=== PATIENT | male | born 1970 | race African-American/Black ===

== ENCOUNTER 2018-11-19 07:29 | Emergency (ER) | payer SELFPAY | END 2018-11-19 08:14 | disposition home or self-care (01) | LOC: ERS 07:29 | DX: R21 Rash and other nonspecific skin eruption (principal); F17.210 Nicotine dependence, cigarettes, uncomplicated | CPT/HCPCS: 99281 ==

== ENCOUNTER 2020-04-19 12:49 | Emergency (ER) | payer SELFPAY ==
[2020-04-19] MEDS ORDERED: Acetaminophen 500 MG TAB ONE (14:04)
== END 2020-04-19 14:08 | disposition home or self-care (01) ==
LOC: ERS 12:49
DX: K04.7 Periapical abscess without sinus (principal); L03.211 Cellulitis of face; J45.909 Unspecified asthma, uncomplicated; F17.210 Nicotine dependence, cigarettes, uncomplicated; M06.9 Rheumatoid arthritis, unspecified
CPT/HCPCS: 41800

== ENCOUNTER 2020-12-07 15:31 | Emergency (ER) | payer BC ==
[2020-12-07] MEDS ORDERED: Cyclobenzaprine 10 MG TAB ONE (16:01)
== END 2020-12-07 16:10 | disposition home or self-care (01) ==
LOC: ERS 15:31
DX: M54.42 Lumbago with sciatica, left side (principal); J45.909 Unspecified asthma, uncomplicated; M06.9 Rheumatoid arthritis, unspecified; F17.210 Nicotine dependence, cigarettes, uncomplicated
CPT/HCPCS: 99283

== ENCOUNTER 2021-09-17 08:05 | Emergency (ER) | payer BC, MEDICAID, OTHER ==
[2021-09-17 08:36] LABS: Bacteria/HPF None Seen HPF (None Seen); Bilirubin Negative (Negative); Blood, Urine 3+ (Negative); Clarity Turbid (Clear); Glucose, Urine (Dipstick) Normal (Negative); Ketone, Urine Negative (Negative); Leukocyte 500 Leu/uL (Negative); Nitrite Negative (Negative); Protein, Urine (Dipstick) 50 mg/dL (Neg-Trace); RBC/HPF Greater than 50 HPF (0-3); Squamous Epithelial 0-3 HPF (0-3); Urobilinogen Normal mg/dL (Less than 2); WBC/HPF Greater than 50 HPF (0-3); pH, Urine 5.5 (5.0-9.0)
[2021-09-18 11:56] LABS: Chlam.trachomatis by PCR,Urine Not Detected (NotDetected)
== END 2021-09-17 10:57 | disposition home or self-care (01) ==
LOC: ERS 08:05
DX: M06.9 Rheumatoid arthritis, unspecified (principal); N39.0 Urinary tract infection, site not specified; J45.909 Unspecified asthma, uncomplicated; F17.210 Nicotine dependence, cigarettes, uncomplicated
CPT/HCPCS: 81003; 81015; 87086; 87491; 87591

== ENCOUNTER 2021-11-26 13:27 | Outpatient (CLI) | payer OTHER ==
[2021-11-27 00:25] LABS: SARS-CoV-2 PCR by NAA Not Detected (NotDetected)
== END 2021-11-26 13:28 | disposition home or self-care (01) ==
LOC: LABBT 13:27
PROVIDERS: ATTEND Urology
DX: N20.2 Calculus of kidney with calculus of ureter (principal); Z20.822 Contact with and (suspected) exposure to COVID-19
CPT/HCPCS: U0003; U0005

== ENCOUNTER 2024-04-29 07:46 | Emergency (ER) | payer MEDICARE, OTHER ==
[2024-04-29] MEDS ORDERED: Pantoprazole DR 40 MG TAB ONE (08:59)
[2024-04-29 09:13] LABS: Bacteria/HPF None Seen HPF (None Seen); Bilirubin Negative (Negative); Blood, Urine Negative (Negative); CAUTI Indications for Culture Dysuria,urgency,freq; Clarity Clear (Clear); Glucose, Urine (Dipstick) Normal (Negative); Ketone, Urine Negative (Negative); Leukocyte Negative Leu/uL (Negative); Nitrite Negative (Negative); Protein, Urine (Dipstick) 50 mg/dL (Neg-Trace); RBC/HPF None Seen HPF (0-3); Specific Gravity, Urine 1.031 (1.002-1.036); Squamous Epithelial 0-3 HPF (0-3); Urobilinogen Normal mg/dL (Less than 2); WBC/HPF 0-3 HPF (0-3); pH, Urine 5.5 (5.0-9.0)
[2024-04-29 09:21] LABS: Urine Culture Reflex No No
[2024-04-29 09:32] LABS: #Basophils 0.07 10x3/uL (0.0-0.2); %Basophils 0.9 % (0.0-1.0); %Eosinophils 2.2 % (0.0-10.0); %Lymphocytes 19.1 % (21.0-51.0); %Monocytes 7.9 % (0.0-10.0); %Neutrophils 69.6 % (42.0-75.0); Hemoglobin 9.4 g/dL (14.0-18.0); Mean Corpuscular HGB CONC 31.3 g/dL (32.0-36.0); Mean Corpuscular Hemoglobin 33.6 pg (27.0-31.0); Mean Corpuscular Volume 107.1 fL (78.0-98.0); Mean Platelet Volume 9.6 fL (7.4-10.4); Platelet Count 429 10x3/uL (130-400); RBC Distribution Width 12.8 % (11.5-14.5)
[2024-04-29 09:55] LABS: ALT (SGPT) 10 U/L (8-55); AST (SGOT) 13 U/L (5-34); Albumin 3.8 g/dL (3.5-5.0); Alkaline Phosphatase 89 U/L (40-110); Anion Gap 14 mmol/L (10-20); BUN (Urea Nitrogen) 22 mg/dL (8.4-25.7); Bilirubin, Total 0.6 mg/dL (0.2-1.2); Calc. Creatinine Clearance 0 mL/min (70-130); Calcium 9.5 mg/dL (7.8-10.44); Carbon Dioxide 26 mmol/L (22-29); Chloride 101 mmol/L (98-107); Estimated GFR 26; Globulin 3.6 g/dL (2.4-3.5); Glucose 101 mg/dL (70-105); Potassium 4.8 mmol/L (3.5-5.1); Protein, Total 7.4 g/dL (6.0-8.3); Sodium 136 mmol/L (136-145)
[2024-04-29] MEDS ORDERED: Mag-Al 1200 mg/1200 mg/30 ML UDCUP ONE (10:26)
[2024-04-29] MEDS ORDERED: Morphine 4 MG/ML VIAL ONE (10:58)
[2024-04-29] MEDS ORDERED: Iopamidol-370 76% 500 ML MDV (1 ML CHARGE) ONE (13:58)
== END 2024-04-29 12:49 | disposition home or self-care (01) ==
LOC: ERS 07:46
DX: K52.9 Noninfective gastroenteritis and colitis, unspecified (principal); F17.210 Nicotine dependence, cigarettes, uncomplicated
CPT/HCPCS: 74177; 80053; 81001; 83605; 85025; 96374; 99284; J2272; 36415; Q9967

== ENCOUNTER 2024-07-21 09:49 | Emergency (ER) | payer MEDICARE ==
[2024-07-21] MEDS ORDERED: Milk Of Magnesia 30 ML UDCUP ONE (10:53)
[2024-07-21] MEDS ORDERED: Morphine 4 MG/ML VIAL ONE (10:53)
[2024-07-21] MEDS ORDERED: Pantoprazole 40 MG VIAL ONE (10:57)
[2024-07-21 11:20] LABS: #Basophils 0.03 10x3/uL (0.0-0.2); %Basophils 0.5 % (0.0-1.0); %Eosinophils 2.8 % (0.0-10.0); %Lymphocytes 22.4 % (21.0-51.0); %Monocytes 6.6 % (0.0-10.0); %Neutrophils 67.4 % (42.0-75.0); Hematocrit 37.4 % (42.0-52.0); Hemoglobin 12.4 g/dL (14.0-18.0); Mean Corpuscular HGB CONC 33.2 g/dL (32.0-36.0); Mean Corpuscular Hemoglobin 33.3 pg (27.0-31.0); Mean Corpuscular Volume 100.5 fL (78.0-98.0); Mean Platelet Volume 10.8 fL (7.4-10.4); Platelet Count 200 10x3/uL (130-400); RBC Distribution Width 12.7 % (11.5-14.5); Red Blood Cell (RBC) Count 3.72 mill/uL (4.70-6.10)
[2024-07-21 11:32] LABS: Bacteria/HPF None Seen HPF (None Seen); Bilirubin Negative (Negative); Blood, Urine Negative (Negative); CAUTI Indications for Culture Pelvic or flank pain; Clarity Clear (Clear); Glucose, Urine (Dipstick) Normal (Negative); Ketone, Urine Negative (Negative); Leukocyte Negative Leu/uL (Negative); Nitrite Negative (Negative); Protein, Urine (Dipstick) 70 mg/dL (Neg-Trace); RBC/HPF 0-3 HPF (0-3); Specific Gravity, Urine 1.016 (1.002-1.036); Squamous Epithelial 0-3 HPF (0-3); Urobilinogen Normal mg/dL (Less than 2); WBC/HPF 0-3 HPF (0-3)
[2024-07-21 11:33] LABS: Urine Culture Reflex No No
[2024-07-21 11:41] LABS: ALT (SGPT) 18 U/L (8-55); AST (SGOT) 20 U/L (5-34); Albumin 4.3 g/dL (3.5-5.0); Alkaline Phosphatase 112 U/L (40-110); Anion Gap 15 mmol/L (10-20); BUN (Urea Nitrogen) 24 mg/dL (8.4-25.7); Bilirubin, Total 0.7 mg/dL (0.2-1.2); Calc. Creatinine Clearance 0 mL/min (70-130); Calcium 9.3 mg/dL (7.8-10.44); Carbon Dioxide 16 mmol/L (22-29); Chloride 113 mmol/L (98-107); Estimated GFR 31; Globulin 3.8 g/dL (2.4-3.5); Glucose 80 mg/dL (70-105); Lipase 53 U/L (8-78); Potassium 3.9 mmol/L (3.5-5.1); Protein, Total 8.1 g/dL (6.0-8.3); Sodium 140 mmol/L (136-145)
[2024-07-21 11:46] LABS: Troponin I Less than 0.010 ng/mL (< 0.028)
== END 2024-07-21 12:58 | disposition home or self-care (01) ==
LOC: ERS 09:49
DX: K26.9 Duodenal ulcer, unspecified as acute or chronic, without hemorrhage or perforation (principal); N20.0 Calculus of kidney; F17.210 Nicotine dependence, cigarettes, uncomplicated
CPT/HCPCS: 71045; 74177; 80053; 81001; 83690; 84484; 85025; 93005; J2272; J2470; 96374; 96375

== ENCOUNTER 2024-08-24 14:46 | Emergency (ER) | payer MEDICARE | END 2024-08-24 17:45 | disposition home or self-care (01) | LOC: ERS 14:46 | DX: S92.422A Displaced fracture of distal phalanx of left great toe, initial encounter for closed fracture (principal); S92.532A Displaced fracture of distal phalanx of left lesser toe(s), initial encounter for closed fracture; F17.210 Nicotine dependence, cigarettes, uncomplicated; W23.0XXA Caught, crushed, jammed, or pinched between moving objects, initial encounter | CPT/HCPCS: 99283 ==

== ENCOUNTER 2025-04-17 15:58 | Emergency (ER) | payer MEDICARE ==
[2025-04-17 17:12] LABS: Bacteria/HPF None Seen HPF (None Seen); CAUTI Indications for Culture Acute Hematuria; Glucose, Urine (Dipstick) Normal (Negative); Leukocyte 25 Leu/uL (Negative); Protein, Urine (Dipstick) 50 mg/dL (Neg-Trace); RBC/HPF 0-3 HPF (0-3); Specific Gravity, Urine 1.017 (1.002-1.036)
[2025-04-17 17:14] LABS: Urine Culture Reflex No No
[2025-04-17] MEDS ORDERED: Azithromycin 250 MG TAB ONE (18:15)
[2025-04-17] MEDS ORDERED: cefTRIAXone (ROCEPHIN) 500 MG VIAL ONE (18:15)
[2025-04-17 23:05] LABS: Chlam.trachomatis by PCR,Urine Not Detected (NotDetected); GC N.gonorrhoeae PCR,UrineVOID Not Detected (NotDetected)
== END 2025-04-17 18:23 | disposition home or self-care (01) ==
LOC: ERS 15:58
DX: Z20.2 Contact with and (suspected) exposure to infections with a predominantly sexual mode of transmission (principal); F17.210 Nicotine dependence, cigarettes, uncomplicated
CPT/HCPCS: 81001; 87491; 87591; 87661; J0696; 96372; 99283